=== PATIENT | female | born 1990 | race Caucasian/White ===

== ENCOUNTER 2017-03-19 11:43 | Inpatient (IN) | payer BC ==
[~2017-03-19] VITALS: Ht 165.1 cm; Wt 82.2 kg
[2017-03-19 12:41] LABS: BILIRUBIN,URINE NEGATIVE (NEG); GLUCOSE,URINE >=1000 mg/dL (NEG); NITRITE,URINE NEGATIVE (NEG); PROTEIN,URINE >=300 mg/dL (NEG-TRACE); UROBILINOGEN,URINE 0.2 mg/dL (0.2 mg/dL)
[2017-03-19 12:42] LABS: BASO # 0.1 x10^3/uL (0.0-0.2); BASO % 1 % (0-3); EOS % 1 % (0-3); HEMATOCRIT 45.5 % (36.0-47.0); HEMOGLOBIN 14.9 g/dL (12.0-15.5); LYMPH # 0.2 x10^3/uL (1.0-4.8); LYMPH % 2 % (24-48); MEAN CORPUSCULAR HEMOGLOBIN 28 pg (25-35); MEAN CORPUSCULAR HGB CONC 33 g/dL (31-37); MEAN CORPUSCULAR VOLUME 85 fL (79-100); MONO % 4 % (0-9); NEUT % 93 % (31-73); PLATELET COUNT 232 x10^3/uL (140-400); RED BLOOD COUNT 5.37 x10^6/uL (3.50-5.40); RED CELL DISTRIBUTION WIDTH 13.7 % (11.5-14.5); WHITE BLOOD COUNT 8.1 x10^3/uL (4.0-11.0)
[2017-03-19] MEDS ORDERED: IV NORMAL SALINE 1000ML BAG 1,000 ML IV ONE ×2 (12:45→13:30)
[2017-03-19] MEDS ORDERED: ONDANSETRON PF 4 MG/2 ML VIAL. IV ONE (12:45)
[2017-03-19 12:50] LABS: CALCIUM 8.6 mg/dL (8.5-10.1); CREATININE 0.9 mg/dL (0.6-1.0); GFR 76.9; POTASSIUM 4.6 mmol/L (3.5-5.1)
[2017-03-19 12:55] LABS: ALBUMIN 3.1 g/dL (3.4-5.0); DIRECT BILIRUBIN 0.1 mg/dL (0.0-0.2); TOTAL BILIRUBIN 0.6 mg/dL (0.2-1.0); TOTAL PROTEIN 7.2 g/dL (6.4-8.2)
[2017-03-19 13:00] LABS: BACTERIA,URINE MANY /HPF (0-FEW); WBC,URINE OCC /HPF (0-4)
--- NOTE | 2017-03-19 13:21 | PHYS DOC ---
Past Medical History Past Medical History: Anxiety, Diabetes-Type I, Other Additional Past Medical Histor: epilepsy, lumbar lordosis, insulin pump Past Surgical History: No Surgical History Alcohol Use: Occasionally Drug Use: None Adult General Chief Complaint Chief Complaint: BLOOD SUGAR PROBLEM HPI HPI 26-year-old female with history of type 1 diabetes currently using an insulin pump presenting to the emergency department with increasing blood sugar levels. She also has associated nausea and vomiting. She reports earlier this morning her blood sugars were in the 500s however over the past few hours she has been between 150 and 200. He denies any abdominal pain fevers or chills. She denies chest pain or shortness of breath. She reports that her insulin pump is working correctly. ROS is negative for chest pain shortness of breath or abdominal pain. Positive for nausea vomiting and elevated blood sugars. Negative for neck stiffness confusion cyanosis or nuchal rigidity. All other review of systems is negative unless otherwise noted in history of present illness. ED course: 26-year-old female presenting to the emergency department with increasing blood sugar levels. On arrival patient is afebrile with mild hypertension. She is tachycardic breathing comfortably on room air. On examination the patient is a soft nontender nondistended abdomen without any rebound tenderness or guarding. Negative McBurney's point. Negative Lin sign. Lungs are clear to auscultation. Normal neurologic exam. No evidence of nuchal rigidity. Negative Brudzinski sign. Negative Kernig sign. Otherwise unremarkable exam. Blood work obtained along with ABG. Patient is making ketones in the urine. Blood sugar elevated. Chemistry panel CO2 is at 23. ABG - Bicarbonate at 19 with ph at 7.41. Patient was given 10 units of IV insulin along with saline and then we obtained a bed for the patient hospital. I discussed case with Dr. Osborn who agrees with admission and plan thus far.I have assessed this patient clinically and believe that their condition requires an admission to the hospital. After consulting the admitting physician about this case, they have asked that I admit this patient to their service as an inpatient based on the clinical presentation and my impression. Review of Systems Review of Systems SEE ABOVE. Current Medications Current Medications Current Medications Medications (Trade) Dose Ordered Sig/Rosalinda Start Time Stop Time Status Last Admin Dose Admin Acetaminophen (Tylenol) 500 mg PRN Q6HRS PRN 03/19/17 15:15 Ceftriaxone Sodium 50 ml @ 100 mls/hr 1X ONCE 03/19/17 14:30 03/19/17 14:59 DC 03/19/17 15:07 100 MLS/HR Dextrose (Dextrose 50%-Water Syringe) 12.5 gm PRN Q15MIN PRN 03/19/17 14:45 Famotidine (Pepcid) 20 mg BID 03/19/17 21:00 Insulin Aspart (NovoLOG VIAL) 15 unit 1X ONCE 03/19/17 14:45 03/19/17 14:46 Cancel Insulin Aspart (NovoLOG) 10 units 1X ONCE 03/19/17 15:15 03/19/17 15:16 DC 03/19/17 15:19 10 UNITS Insulin Human Regular (NovoLIN R VIAL) 10 unit 1X ONCE 03/19/17 14:30 03/19/17 14:46 DC Metoclopramide HCl (Reglan) 5 mg TID 03/19/17 21:00 Morphine Sulfate 2 mg PRN Q2HR PRN 03/19/17 14:30 03/20/17 14:29 Ondansetron HCl (Zofran) 4 mg PRN Q6HRS PRN 03/19/17 14:45 03/20/17 14:44 Prochlorperazine Edisylate (Compazine) 10 mg PRN Q6HRS PRN 03/19/17 15:15 Sodium Chloride 1,000 ml @ 150 mls/hr Q6H40M 03/19/17 14:21 03/20/17 14:20 Allergies Allergies Allergies Coded Allergies Type Severity Reaction Last Updated Verified Sulfa (Sulfonamide Antibiotics) Allergy Intermediate childhood 03/19/17 Yes Physical Exam Physical Exam SEE ABOVE Constitutional: Well developed, well nourished, no acute distress, non-toxic appearance. [] HENT: Normocephalic, atraumatic, bilateral external ears normal, oropharynx moist, no oral exudates, nose normal. [] Eyes: PERRLA, EOMI, conjunctiva normal, no discharge. [] Neck: Normal range of motion, no tenderness, supple, no stridor. [] Cardiovascular:Heart rate regular rhythm, no murmur [] Lungs & Thorax: Bilateral breath sounds clear to auscultation [] Abdomen: Bowel sounds normal, soft, no tenderness, no masses, no pulsatile masses. [] Skin: Warm, dry, no erythema, no rash. [] Back: No tenderness, no CVA tenderness. [] Extremities: No tenderness, no cyanosis, no clubbing, ROM intact, no edema. [] Neurologic: Alert and oriented X 3, normal motor function, normal sensory function, no focal deficits noted. [] Psychologic: Affect normal, judgement normal, mood normal. [] Current Patient Data Vital Signs Vital Signs Date Time Temp Pulse Resp B/P (MAP) Pulse Ox O2 Delivery O2 Flow Rate FiO2 03/19/17 12:15 99.1 122 16 145/96 (112) 97 Room Air 99.1 Lab Values Laboratory Tests Test 03/19/17 12:15 03/19/17 12:18 03/19/17 12:24 03/19/17 12:44 Urine Collection Type Unknown Urine Color Yellow Urine Clarity Clear Urine pH 6.0 Urine Specific [place] >=1.030 Urine Protein >=300 mg/dL (NEG-TRACE) Urine Glucose (UA) >=1000 mg/dL (NEG) Urine Ketones (Stick) >=80 mg/dL (NEG) Urine Blood Moderate (NEG) Urine Nitrite Negative (NEG) Urine Bilirubin Negative (NEG) Urine Urobilinogen Dipstick 0.2 mg/dL (0.2 mg/dL) Urine Leukocyte Esterase Negative (NEG) Urine RBC 6-10 /HPF (0-2) Urine WBC Occ /HPF (0-4) Urine Bacteria Many /HPF (0-FEW) White Blood Count 8.1 x10^3/uL (4.0-11.0) Red Blood Count 5.37 x10^6/uL (3.50-5.40) Hemoglobin 14.9 g/dL (12.0-15.5) Hematocrit 45.5 % (36.0-47.0) Mean Corpuscular Volume 85 fL (79-100) Mean Corpuscular Hemoglobin 28 pg (25-35) Mean Corpuscular Hemoglobin Concent 33 g/dL (31-37) Red Cell Distribution Width 13.7 % (11.5-14.5) Platelet Count 232 x10^3/uL (140-400) Neutrophils (%) (Auto) 93 % (31-73) H Lymphocytes (%) (Auto) 2 % (24-48) L Monocytes (%) (Auto) 4 % (0-9) Eosinophils (%) (Auto) 1 % (0-3) Basophils (%) (Auto) 1 % (0-3) Neutrophils # (Auto) 7.5 x10^3uL (1.8-7.7) Lymphocytes # (Auto) 0.2 x10^3/uL (1.0-4.8) L Monocytes # (Auto) 0.3 x10^3/uL (0.0-1.1) Eosinophils # (Auto) 0.0 x10^3/uL (0.0-0.7) Basophils # (Auto) 0.1 x10^3/uL (0.0-0.2) Segmented Neutrophils % 91 % (35-66) H Band Neutrophils % 5 % (0-9) Lymphocytes % 2 % (24-48) L Monocytes % 2 % (0-10) Platelet Estimate Adequate (ADEQUATE) Sodium Level 139 mmol/L (136-145) Potassium Level 4.6 mmol/L (3.5-5.1) Chloride Level 101 mmol/L (98-107) Carbon Dioxide Level 23 mmol/L (21-32) Anion Gap 15 (6-14) H Blood Urea Nitrogen 21 mg/dL (7-20) H Creatinine 0.9 mg/dL (0.6-1.0) Estimated GFR (Cockcroft-Gault) 76.9 Glucose Level 381 mg/dL (70-99) H Lactic Acid Level 1.7 mmol/L (0.4-2.0) Calcium Level 8.6 mg/dL (8.5-10.1) Total Bilirubin 0.6 mg/dL (0.2-1.0) Direct Bilirubin 0.1 mg/dL (0.0-0.2) Aspartate Amino Transferase (AST) 28 U/L (15-37) Alanine Aminotransferase (ALT) 33 U/L (14-59) Alkaline Phosphatase 124 U/L (46-116) H Troponin I Quantitative < 0.017 ng/mL (0.000-0.055) Total Protein 7.2 g/dL (6.4-8.2) Albumin 3.1 g/dL (3.4-5.0) L Lipase 101 U/L (73-393) POC Urine HCG, Qualitative Hcg negative (Negative) Glucose (Fingerstick) 328 mg/dL (70-99) H Test 03/19/17 13:45 03/19/17 15:16 O2 Saturation Pending Arterial Blood pH 7.41 (7.35-7.45) Arterial Blood pCO2 at Patient Temp 30 mmHg (35-46) L Arterial Blood pO2 at Patient Temp 76 mmHg (85-108) L Arterial Blood HCO3 19 mmol/L (21-28) L Arterial Blood Base Excess -5 mmol/L (-3-3) L FiO2 21 Glucose (Fingerstick) 277 mg/dL (70-99) H Laboratory Tests 03/19/17 12:18 Laboratory Tests 03/19/17 12:18 EKG EKG [] Radiology/Procedures Radiology/Procedures [] Course & Med Decision Making Course & Med Decision Making Pertinent Labs and Imaging studies reviewed. (See chart for details) [] Dragon Disclaimer Dragon Disclaimer This electronic medical record was generated, in whole or in part, using a voice recognition dictation system. Departure Departure Impression: Primary Impression: Hyperglycemia Additional Impression: Ketosis Disposition: ADMITTED INPATIENT Admitting Physician: Hannah Osborn Condition: STABLE Referrals: VERNA DIALLO (PCP) Problem Qualifiers BRENDAN BRENNAN MD Mar 19, 2017 13:20
--- NOTE | 2017-03-19 13:44 | RAD ---
Portable chest, 03/19/2017: History: Diabetes, high blood pressure The heart size and pulmonary vascularity are normal. No pulmonary infiltrates are seen. There is no evidence of pleural fluid. IMPRESSION: No acute cardiopulmonary abnormality is detected.
[2017-03-19 13:57] LABS: HCO3 ABG 19 mmol/L (21-28); PCO2 ABG 30 mmHg (35-46); PH ABG 7.41 (7.35-7.45); PO2 ABG 76 mmHg (85-108)
[2017-03-19 14:00] LABS: FIO2 ABG 21
[2017-03-19 14:13] LABS: PLT ESTIMATE ADEQUATE (ADEQUATE)
[2017-03-19] MEDS ORDERED: ONDANSETRON PF 4 MG/2 ML VIAL. IV PRN ×2 (14:30→14:45)
[2017-03-19] MEDS ORDERED: INSULIN REGULAR 100 UNIT/ML 10ML VIAL. IV ONE (14:30)
[2017-03-19] MEDS ORDERED: MORPHINE SULFATE 2 MG/ML DISP.SYRIN. IV PRN (14:30)
[2017-03-19] MEDS ORDERED: DEXTROSE 50% 25 GM / 50ML DISP.SYRIN. IV PRN (14:45)
[2017-03-19] MEDS ORDERED: INSULIN ASPART 100 UNIT/ML 10ML VIAL. SQ ONE (14:45)
[2017-03-19] MEDS ORDERED: INSULIN ASPART 300 UNITS/3 ML INSULN.PEN SQ ONE (15:15)
[2017-03-19] MEDS ORDERED: PROCHLORPERAZINE 10 MG/2 ML VIAL. IV PRN (15:15)
--- NOTE | 2017-03-19 15:20 | PDOC1 ---
History and Physical Date of Admission Date of Admission DATE: 03/19/17 TIME: 15:15 Identification/Chief Complaint Chief Complaint Nausea vomiting unable to keep anything down Problems: Source Source: Caregiver, Chart review, Patient History of Present Illness History of Present Illness 26-year-old female who follows with an group fitness manager at for diabetes type 1. Unknown A1c it is always high. She has been a diabetic since 11 years old hence she knows how to manage her diabetes. She has been a diabetic for 15 years, has a current insulin pump. It is running there is no lack of any medications. Blood sugar was over 500 at home she claims. Here at the emergency room it's in the 320s range. Anion gap of 15, ketonuria and proteinuria and glucosuria on UA but no evidence of UTI. GOt a gram of Rocephin 1. Patient being admitted to control the blood sugar and also to control her nausea vomiting until she is able to take by mouth and be sent home. Agreeable to being admitted Past Medical History Endocrine: Diabetes Past Surgical History Past Surgical History: No pertinent history Family History Family History: Diabetes Social History Smoke: No ALCOHOL: none Drugs: None Current Problem List Problem List Problems Medical Problems: (1) Hyperglycemia Status: Acute Problems: Current Medications Current Medications Current Medications Sodium Chloride 1,000 ml @ 1,000 mls/hr 1X ONCE IV Last administered on 03/19t 12:55; Start 03/19/17 at 12:45; Stop 03/19/17 at 13:44; Status DC Ondansetron HCl (Zofran) 4 mg 1X ONCE IV Last administered on 03/19/17 12:55 ; Start 03/19/17 at 12:45; Stop 03/19/17 at 12:46; Status DC Sodium Chloride 1,000 ml @ 1,000 mls/hr 1X ONCE IV ; Start 03/19/17 at 13:30 ; Stop 03/19/17 at 14:29; Status DC Ondansetron HCl (Zofran) 4 mg PRN Q8HRS PRN IV NAUSEA/VOMITING; Start at 14:30; Stop 03/19/17 at 14:34; Status DC Morphine Sulfate 2 mg PRN Q2HR PRN IV PAIN; Start 03/19/17 at 14:30; Stop at 14:29 Sodium Chloride 1,000 ml @ 150 mls/hr Q6H40M IV ; Start 03/19/17 at 14:21; Stop 03/20/17 at 14:20 Insulin Human Regular (NovoLIN R VIAL) 10 unit 1X ONCE IV ; Start 03/19/17 at 14:30; Stop 03/19/17 at 14:46; Status DC Ceftriaxone Sodium 50 ml @ 100 mls/hr 1X ONCE IV Last administered on t 15:07; Start 03/19/17 at 14:30; Stop 03/19/17 at 14:59; Status DC Ondansetron HCl (Zofran) 4 mg PRN Q6HRS PRN IV NAUSEA/VOMITING; Start at 14:45; Stop 03/20/17 at 14:44 Insulin Aspart (NovoLOG) 0-9 UNITS TIDWMEALS SQ ; Start 03/19/17 at 17:00 Dextrose (Dextrose 50%-Water Syringe) 12.5 gm PRN Q15MIN PRN IV SEE COMMENTS; Start 03/19/17 at 14:45 Insulin Aspart (NovoLOG VIAL) 15 unit 1X ONCE SQ ; Start 03/19/17 at 14:45; Stop 03/19/17 at 14:46; Status Cancel Insulin Aspart (NovoLOG) 10 units 1X ONCE SQ ; Start 03/19/17 at 15:15; Stop 03/19/17 at 15:16 Allergies Allergies: Coded Allergies: Sulfa (Sulfonamide Antibiotics) (Verified Allergy, Intermediate, childhood , 03/19/17) ROS Review of System Nausea, vomiting no abdominal pain no diarrhea no UTI, the rest of the 14 point systems reviewed with her negative Physical Exam General: Alert, Oriented X3, Cooperative, No acute distress HEENT: Atraumatic, PERRLA, EOMI Lungs: Clear to auscultation, Normal air movement Heart: S1S2, RRR, no thrills, no rubs, no gallops, no murmurs Cardiovascular: S1, S2 Breasts: Normal, Rt breast nml w/o mass, Lt breast nml w/o mass, Nipples normal Abdomen: Normal bowel sounds, Soft, No tenderness, Other (insulin pump attached to her tummy) Rectal Exam: not examined PELVIC: Nml ext genitalia Extremities: No clubbing, No cyanosis, No edema, Normal pulses, No tenderness/ swelling Skin: No rashes, No breakdown, No significant lesion Neuro: Normal gait, Normal speech, Strength at 5/5 X4 ext, Normal tone, Sensation intact, Cranial nerves 3-12 NL, Reflexes 2+ Psych/Mental Status: Mental status NL, Mood NL Vitals Vitals Vital Signs Date Time Temp Pulse Resp B/P (MAP) Pulse Ox O2 Delivery O2 Flow Rate FiO2 03/19/17 12:15 99.1 122 16 145/96 (112) 97 Room Air 99.1 Labs Labs Laboratory Tests Test 03/19/17 12:15 03/19/17 12:18 03/19/17 12:24 03/19/17 12:44 Urine Collection Type Unknown Urine Color Yellow Urine Clarity Clear Urine pH 6.0 Urine Specific [place] >=1.030 Urine Protein >=300 mg/dL (NEG-TRACE) Urine Glucose (UA) >=1000 mg/dL (NEG) Urine Ketones (Stick) >=80 mg/dL (NEG) Urine Blood Moderate (NEG) Urine Nitrite Negative (NEG) Urine Bilirubin Negative (NEG) Urine Urobilinogen Dipstick 0.2 mg/dL (0.2 mg/dL) Urine Leukocyte Esterase Negative (NEG) Urine RBC 6-10 /HPF (0-2) Urine WBC Occ /HPF (0-4) Urine Bacteria Many /HPF (0-FEW) White Blood Count 8.1 x10^3/uL (4.0-11.0) Red Blood Count 5.37 x10^6/uL (3.50-5.40) Hemoglobin 14.9 g/dL (12.0-15.5) Hematocrit 45.5 % (36.0-47.0) Mean Corpuscular Volume 85 fL (79-100) Mean Corpuscular Hemoglobin 28 pg (25-35) Mean Corpuscular Hemoglobin Concent 33 g/dL (31-37) Red Cell Distribution Width 13.7 % (11.5-14.5) Platelet Count 232 x10^3/uL (140-400) Neutrophils (%) (Auto) 93 % (31-73) Lymphocytes (%) (Auto) 2 % (24-48) Monocytes (%) (Auto) 4 % (0-9) Eosinophils (%) (Auto) 1 % (0-3) Basophils (%) (Auto) 1 % (0-3) Neutrophils # (Auto) 7.5 x10^3uL (1.8-7.7) Lymphocytes # (Auto) 0.2 x10^3/uL (1.0-4.8) Monocytes # (Auto) 0.3 x10^3/uL (0.0-1.1) Eosinophils # (Auto) 0.0 x10^3/uL (0.0-0.7) Basophils # (Auto) 0.1 x10^3/uL (0.0-0.2) Segmented Neutrophils % 91 % (35-66) Band Neutrophils % 5 % (0-9) Lymphocytes % 2 % (24-48) Monocytes % 2 % (0-10) Platelet Estimate Adequate (ADEQUATE) Sodium Level 139 mmol/L (136-145) Potassium Level 4.6 mmol/L (3.5-5.1) Chloride Level 101 mmol/L (98-107) Carbon Dioxide Level 23 mmol/L (21-32) Anion Gap 15 (6-14) Blood Urea Nitrogen 21 mg/dL (7-20) Creatinine 0.9 mg/dL (0.6-1.0) Estimated GFR (Cockcroft-Gault) 76.9 Glucose Level 381 mg/dL (70-99) Lactic Acid Level 1.7 mmol/L (0.4-2.0) Calcium Level 8.6 mg/dL (8.5-10.1) Total Bilirubin 0.6 mg/dL (0.2-1.0) Direct Bilirubin 0.1 mg/dL (0.0-0.2) Aspartate Amino Transf (AST/SGOT) 28 U/L (15-37) Alanine Aminotransferase (ALT/SGPT) 33 U/L (14-59) Alkaline Phosphatase 124 U/L (46-116) Troponin I Quantitative < 0.017 ng/mL (0.000-0.055) Total Protein 7.2 g/dL (6.4-8.2) Albumin 3.1 g/dL (3.4-5.0) Lipase 101 U/L (73-393) Bedside Urine HCG, Qualitative Hcg negative (Negative) Glucose (Fingerstick) 328 mg/dL (70-99) Test 03/19/17 13:45 Arterial Blood pH 7.41 (7.35-7.45) Arterial Blood pCO2 at Patient Temp 30 mmHg (35-46) Arterial Blood pO2 at Patient Temp 76 mmHg (85-108) Arterial Blood HCO3 19 mmol/L (21-28) Arterial Blood Base Excess -5 mmol/L (-3-3) FiO2 21 Laboratory Tests Test 03/19/17 12:15 03/19/17 12:18 03/19/17 12:24 03/19/17 12:44 Urine Collection Type Unknown Urine Color Yellow Urine Clarity Clear Urine pH 6.0 Urine Specific [place] >=1.030 Urine Protein >=300 mg/dL (NEG-TRACE) Urine Glucose (UA) >=1000 mg/dL (NEG) Urine Ketones (Stick) >=80 mg/dL (NEG) Urine Blood Moderate (NEG) Urine Nitrite Negative (NEG) Urine Bilirubin Negative (NEG) Urine Urobilinogen Dipstick 0.2 mg/dL (0.2 mg/dL) Urine Leukocyte Esterase Negative (NEG) Urine RBC 6-10 /HPF (0-2) Urine WBC Occ /HPF (0-4) Urine Bacteria Many /HPF (0-FEW) White Blood Count 8.1 x10^3/uL (4.0-11.0) Red Blood Count 5.37 x10^6/uL (3.50-5.40) Hemoglobin 14.9 g/dL (12.0-15.5) Hematocrit 45.5 % (36.0-47.0) Mean Corpuscular Volume 85 fL (79-100) Mean Corpuscular Hemoglobin 28 pg (25-35) Mean Corpuscular Hemoglobin Concent 33 g/dL (31-37) Red Cell Distribution Width 13.7 % (11.5-14.5) Platelet Count 232 x10^3/uL (140-400) Neutrophils (%) (Auto) 93 % (31-73) Lymphocytes (%) (Auto) 2 % (24-48) Monocytes (%) (Auto) 4 % (0-9) Eosinophils (%) (Auto) 1 % (0-3) Basophils (%) (Auto) 1 % (0-3) Neutrophils # (Auto) 7.5 x10^3uL (1.8-7.7) Lymphocytes # (Auto) 0.2 x10^3/uL (1.0-4.8) Monocytes # (Auto) 0.3 x10^3/uL (0.0-1.1) Eosinophils # (Auto) 0.0 x10^3/uL (0.0-0.7) Basophils # (Auto) 0.1 x10^3/uL (0.0-0.2) Segmented Neutrophils % 91 % (35-66) Band Neutrophils % 5 % (0-9) Lymphocytes % 2 % (24-48) Monocytes % 2 % (0-10) Platelet Estimate Adequate (ADEQUATE) Sodium Level 139 mmol/L (136-145) Potassium Level 4.6 mmol/L (3.5-5.1) Chloride Level 101 mmol/L (98-107) Carbon Dioxide Level 23 mmol/L (21-32) Anion Gap 15 (6-14) Blood Urea Nitrogen 21 mg/dL (7-20) Creatinine 0.9 mg/dL (0.6-1.0) Estimated GFR (Cockcroft-Gault) 76.9 Glucose Level 381 mg/dL (70-99) Lactic Acid Level 1.7 mmol/L (0.4-2.0) Calcium Level 8.6 mg/dL (8.5-10.1) Total Bilirubin 0.6 mg/dL (0.2-1.0) Direct Bilirubin 0.1 mg/dL (0.0-0.2) Aspartate Amino Transf (AST/SGOT) 28 U/L (15-37) Alanine Aminotransferase (ALT/SGPT) 33 U/L (14-59) Alkaline Phosphatase 124 U/L (46-116) Troponin I Quantitative < 0.017 ng/mL (0.000-0.055) Total Protein 7.2 g/dL (6.4-8.2) Albumin 3.1 g/dL (3.4-5.0) Lipase 101 U/L (73-393) Bedside Urine HCG, Qualitative Hcg negative (Negative) Glucose (Fingerstick) 328 mg/dL (70-99) Test 03/19/17 13:45 Arterial Blood pH 7.41 (7.35-7.45) Arterial Blood pCO2 at Patient Temp 30 mmHg (35-46) Arterial Blood pO2 at Patient Temp 76 mmHg (85-108) Arterial Blood HCO3 19 mmol/L (21-28) Arterial Blood Base Excess -5 mmol/L (-3-3) FiO2 21 VTE Prophylaxis Ordered VTE Prophylaxis Devices: Yes VTE Pharmacological Prophylaxi: Yes Assessment/Plan Assessment/Plan Assessment: Diabetes type 1, uncontrolled - with indwelling insulin pump, unknown hemoglobin A1c Anion gap elevated No evidence of UTI non Nausea emesis, could be viral? MIld hypoalbuminemia with albumin 3.1 Plan: Admit, aggressive IVF 150 mL an hour I don't think she needs the insulin drip right now, her blood sugars is 328, NovoLog 101 - discussed with PATIENT SERVICE TECHNICIAN PST Sliding scale insulin high-dose but she can do the pump by herself actually too We do not have an group fitness manager here I will try to control her nausea vomiting with meds Once she is able to take something oral then we can discharge home, hopefully tomorrow Agreeable to start a liquid diet Jorge Discussed with her and the family at bedside, seen at the emergency room TIMO YEBOAH MD Mar 19, 2017 15:20
[2017-03-19] MEDS: ACETAMINOPHEN 500 MG TABLET PO PRN (17:02)
[2017-03-19] MEDS: IV NORMAL SALINE 1000ML BAG 1,000 ML IV SCH ×2 (17:03→23:28)
[2017-03-19] MEDS: INSULIN ASPART 300 UNITS/3 ML INSULN.PEN SQ SCH (17:13)
[2017-03-19] MEDS ORDERED: ZONI100C PO (18:42)
[2017-03-19 19:00] VITALS: BP 129/77
[2017-03-19] MEDS: FAMOTIDINE 20 MG TABLET. PO SCH (20:58)
[2017-03-19] MEDS: METOCLOPRAMIDE 5 MG TABLET. PO SCH (20:58)
[2017-03-19] MEDS ORDERED: ZONISAMIDE 100 MG CAPSULE. PO SCH (21:00)
[2017-03-19 23:00] VITALS: BP 109/55
[2017-03-20 03:00] VITALS: BP 118/77
[2017-03-20] MEDS: IV NORMAL SALINE 1000ML BAG 1,000 ML IV SCH (03:45)
[2017-03-20 06:29] LABS: BASO % 0 % (0-3); EOS % 1 % (0-3); HEMATOCRIT 39.2 % (36.0-47.0); LYMPH # 0.6 x10^3/uL (1.0-4.8); LYMPH % 10 % (24-48); MEAN CORPUSCULAR HEMOGLOBIN 28 pg (25-35); MEAN CORPUSCULAR HGB CONC 33 g/dL (31-37); MEAN CORPUSCULAR VOLUME 84 fL (79-100); MONO % 7 % (0-9); NEUT % 83 % (31-73); PLATELET COUNT 190 x10^3/uL (140-400); RED BLOOD COUNT 4.67 x10^6/uL (3.50-5.40); RED CELL DISTRIBUTION WIDTH 13.9 % (11.5-14.5); WHITE BLOOD COUNT 6.6 x10^3/uL (4.0-11.0)
[2017-03-20 06:40] LABS: CALCIUM 7.4 mg/dL (8.5-10.1); CREATININE 0.7 mg/dL (0.6-1.0); GFR 102.8; POTASSIUM 3.4 mmol/L (3.5-5.1)
[2017-03-20 07:00] VITALS: BP 119/76
[2017-03-20] MEDS: METOCLOPRAMIDE 5 MG TABLET. PO SCH (08:32)
[2017-03-20] MEDS: FAMOTIDINE 20 MG TABLET. PO SCH (08:32)
[2017-03-20] MEDS: ACETAMINOPHEN 500 MG TABLET PO PRN (08:34)
[2017-03-20] MEDS: INSULIN ASPART 300 UNITS/3 ML INSULN.PEN SQ SCH ×2 (08:41→11:59)
--- NOTE | 2017-03-20 09:36 | PDOC ---
PROGRESS NOTES Chief Complaint Chief Complaint Hyperglycemia Ketonuria, glycosuria Nausea DM History of Present Illness History of Present Illness Patient was admitted yesterday for blood glucose control after home report of BG >500, and in the ER320 w/an AG of 15. Today her BG has improved to 161, and her AG closed at 10. She has been receiving IVF, nausea control, and BG control. She denies emesis since admittance and reports feeling like she could go home. Vitals Vitals Vital Signs Date Time Temp Pulse Resp B/P (MAP) Pulse Ox O2 Delivery O2 Flow Rate FiO2 03/20/17 07:00 98.5 106 20 119/76 (90) 95 Room Air 98.5 Physical Exam General: Alert, Oriented X3, Cooperative, No acute distress Heart: Regular rate Lungs: Clear Abdomen: Normal bowel sounds, Soft, No tenderness, Other (insulin pump attached to her tummy) Extremities: No clubbing, No cyanosis, No edema, Normal pulses, No tenderness/ swelling Skin: No rashes, No breakdown, No significant lesion Labs LABS Laboratory Tests Test 03/19/17 12:15 03/19/17 12:18 03/19/17 12:24 03/19/17 12:44 Urine Collection Type Unknown Urine Color Yellow Urine Clarity Clear Urine pH 6.0 Urine Specific Malone >=1.030 Urine Protein >=300 mg/dL (NEG-TRACE) Urine Glucose (UA) >=1000 mg/dL (NEG) Urine Ketones (Stick) >=80 mg/dL (NEG) Urine Blood Moderate (NEG) Urine Nitrite Negative (NEG) Urine Bilirubin Negative (NEG) Urine Urobilinogen Dipstick 0.2 mg/dL (0.2 mg/dL) Urine Leukocyte Esterase Negative (NEG) Urine RBC 6-10 /HPF (0-2) Urine WBC Occ /HPF (0-4) Urine Bacteria Many /HPF (0-FEW) White Blood Count 8.1 x10^3/uL (4.0-11.0) Red Blood Count 5.37 x10^6/uL (3.50-5.40) Hemoglobin 14.9 g/dL (12.0-15.5) Hematocrit 45.5 % (36.0-47.0) Mean Corpuscular Volume 85 fL (79-100) Mean Corpuscular Hemoglobin 28 pg (25-35) Mean Corpuscular Hemoglobin Concent 33 g/dL (31-37) Red Cell Distribution Width 13.7 % (11.5-14.5) Platelet Count 232 x10^3/uL (140-400) Neutrophils (%) (Auto) 93 % (31-73) Lymphocytes (%) (Auto) 2 % (24-48) Monocytes (%) (Auto) 4 % (0-9) Eosinophils (%) (Auto) 1 % (0-3) Basophils (%) (Auto) 1 % (0-3) Neutrophils # (Auto) 7.5 x10^3uL (1.8-7.7) Lymphocytes # (Auto) 0.2 x10^3/uL (1.0-4.8) Monocytes # (Auto) 0.3 x10^3/uL (0.0-1.1) Eosinophils # (Auto) 0.0 x10^3/uL (0.0-0.7) Basophils # (Auto) 0.1 x10^3/uL (0.0-0.2) Segmented Neutrophils % 91 % (35-66) Band Neutrophils % 5 % (0-9) Lymphocytes % 2 % (24-48) Monocytes % 2 % (0-10) Platelet Estimate Adequate (ADEQUATE) Sodium Level 139 mmol/L (136-145) Potassium Level 4.6 mmol/L (3.5-5.1) Chloride Level 101 mmol/L (98-107) Carbon Dioxide Level 23 mmol/L (21-32) Anion Gap 15 (6-14) Blood Urea Nitrogen 21 mg/dL (7-20) Creatinine 0.9 mg/dL (0.6-1.0) Estimated GFR (Cockcroft-Gault) 76.9 Glucose Level 381 mg/dL (70-99) Hemoglobin A1c 12.1 % (4.8-5.6) Lactic Acid Level 1.7 mmol/L (0.4-2.0) Calcium Level 8.6 mg/dL (8.5-10.1) Total Bilirubin 0.6 mg/dL (0.2-1.0) Direct Bilirubin 0.1 mg/dL (0.0-0.2) Aspartate Amino Transf (AST/SGOT) 28 U/L (15-37) Alanine Aminotransferase (ALT/SGPT) 33 U/L (14-59) Alkaline Phosphatase 124 U/L (46-116) Troponin I Quantitative < 0.017 ng/mL (0.000-0.055) Total Protein 7.2 g/dL (6.4-8.2) Albumin 3.1 g/dL (3.4-5.0) Lipase 101 U/L (73-393) Bedside Urine HCG, Qualitative Hcg negative (Negative) Glucose (Fingerstick) 328 mg/dL (70-99) Test 03/19/17 13:45 03/19/17 15:16 03/19/17 16:05 03/19/17 16:54 O2 Saturation % (92-99) Arterial Blood pH 7.41 (7.35-7.45) Arterial Blood pCO2 at Patient Temp 30 mmHg (35-46) Arterial Blood pO2 at Patient Temp 76 mmHg (85-108) Arterial Blood HCO3 19 mmol/L (21-28) Arterial Blood Base Excess -5 mmol/L (-3-3) FiO2 21 Glucose (Fingerstick) 277 mg/dL (70-99) 276 mg/dL (70-99) 247 mg/dL (70-99) Test 03/19/17 20:28 03/20/17 06:00 03/20/17 07:47 Glucose (Fingerstick) 183 mg/dL (70-99) 158 mg/dL (70-99) White Blood Count 6.6 x10^3/uL (4.0-11.0) Red Blood Count 4.67 x10^6/uL (3.50-5.40) Hemoglobin 13.0 g/dL (12.0-15.5) Hematocrit 39.2 % (36.0-47.0) Mean Corpuscular Volume 84 fL (79-100) Mean Corpuscular Hemoglobin 28 pg (25-35) Mean Corpuscular Hemoglobin Concent 33 g/dL (31-37) Red Cell Distribution Width 13.9 % (11.5-14.5) Platelet Count 190 x10^3/uL (140-400) Neutrophils (%) (Auto) 83 % (31-73) Lymphocytes (%) (Auto) 10 % (24-48) Monocytes (%) (Auto) 7 % (0-9) Eosinophils (%) (Auto) 1 % (0-3) Basophils (%) (Auto) 0 % (0-3) Neutrophils # (Auto) 5.5 x10^3uL (1.8-7.7) Lymphocytes # (Auto) 0.6 x10^3/uL (1.0-4.8) Monocytes # (Auto) 0.4 x10^3/uL (0.0-1.1) Eosinophils # (Auto) 0.0 x10^3/uL (0.0-0.7) Basophils # (Auto) 0.0 x10^3/uL (0.0-0.2) Sodium Level 138 mmol/L (136-145) Potassium Level 3.4 mmol/L (3.5-5.1) Chloride Level 107 mmol/L (98-107) Carbon Dioxide Level 21 mmol/L (21-32) Anion Gap 10 (6-14) Blood Urea Nitrogen 14 mg/dL (7-20) Creatinine 0.7 mg/dL (0.6-1.0) Estimated GFR (Cockcroft-Gault) 102.8 Glucose Level 161 mg/dL (70-99) Calcium Level 7.4 mg/dL (8.5-10.1) Review of Systems Review of Systems Patient denies vomiting Patient denies nausea Assessment and Plan Assessmemt and Plan Problems Medical Problems: (1) Hyperglycemia Status: Acute (2) Ketosis Status: Acute Assessment: Hyperglycemia Ketonuria, glycosuria Nausea DM Plan: Blood glucose control PRN nausea medication IVF Recheck labs Monitor AG Home meds Discharge home Problems: Comment Review of Relevant I have reviewed the following items jasvir (where applicable) has been applied. Labs Laboratory Tests Test 03/19/17 12:15 03/19/17 12:18 03/19/17 12:24 03/19/17 12:44 Urine Collection Type Unknown Urine Color Yellow Urine Clarity Clear Urine pH 6.0 Urine Specific Malone >=1.030 Urine Protein >=300 mg/dL (NEG-TRACE) Urine Glucose (UA) >=1000 mg/dL (NEG) Urine Ketones (Stick) >=80 mg/dL (NEG) Urine Blood Moderate (NEG) Urine Nitrite Negative (NEG) Urine Bilirubin Negative (NEG) Urine Urobilinogen Dipstick 0.2 mg/dL (0.2 mg/dL) Urine Leukocyte Esterase Negative (NEG) Urine RBC 6-10 /HPF (0-2) Urine WBC Occ /HPF (0-4) Urine Bacteria Many /HPF (0-FEW) White Blood Count 8.1 x10^3/uL (4.0-11.0) Red Blood Count 5.37 x10^6/uL (3.50-5.40) Hemoglobin 14.9 g/dL (12.0-15.5) Hematocrit 45.5 % (36.0-47.0) Mean Corpuscular Volume 85 fL (79-100) Mean Corpuscular Hemoglobin 28 pg (25-35) Mean Corpuscular Hemoglobin Concent 33 g/dL (31-37) Red Cell Distribution Width 13.7 % (11.5-14.5) Platelet Count 232 x10^3/uL (140-400) Neutrophils (%) (Auto) 93 % (31-73) Lymphocytes (%) (Auto) 2 % (24-48) Monocytes (%) (Auto) 4 % (0-9) Eosinophils (%) (Auto) 1 % (0-3) Basophils (%) (Auto) 1 % (0-3) Neutrophils # (Auto) 7.5 x10^3uL (1.8-7.7) Lymphocytes # (Auto) 0.2 x10^3/uL (1.0-4.8) Monocytes # (Auto) 0.3 x10^3/uL (0.0-1.1) Eosinophils # (Auto) 0.0 x10^3/uL (0.0-0.7) Basophils # (Auto) 0.1 x10^3/uL (0.0-0.2) Segmented Neutrophils % 91 % (35-66) Band Neutrophils % 5 % (0-9) Lymphocytes % 2 % (24-48) Monocytes % 2 % (0-10) Platelet Estimate Adequate (ADEQUATE) Sodium Level 139 mmol/L (136-145) Potassium Level 4.6 mmol/L (3.5-5.1) Chloride Level 101 mmol/L (98-107) Carbon Dioxide Level 23 mmol/L (21-32) Anion Gap 15 (6-14) Blood Urea Nitrogen 21 mg/dL (7-20) Creatinine 0.9 mg/dL (0.6-1.0) Estimated GFR (Cockcroft-Gault) 76.9 Glucose Level 381 mg/dL (70-99) Hemoglobin A1c 12.1 % (4.8-5.6) Lactic Acid Level 1.7 mmol/L (0.4-2.0) Calcium Level 8.6 mg/dL (8.5-10.1) Total Bilirubin 0.6 mg/dL (0.2-1.0) Direct Bilirubin 0.1 mg/dL (0.0-0.2) Aspartate Amino Transf (AST/SGOT) 28 U/L (15-37) Alanine Aminotransferase (ALT/SGPT) 33 U/L (14-59) Alkaline Phosphatase 124 U/L (46-116) Troponin I Quantitative < 0.017 ng/mL (0.000-0.055) Total Protein 7.2 g/dL (6.4-8.2) Albumin 3.1 g/dL (3.4-5.0) Lipase 101 U/L (73-393) Bedside Urine HCG, Qualitative Hcg negative (Negative) Glucose (Fingerstick) 328 mg/dL (70-99) Test 03/19/17 13:45 03/19/17 15:16 03/19/17 16:05 03/19/17 16:54 O2 Saturation % (92-99) Arterial Blood pH 7.41 (7.35-7.45) Arterial Blood pCO2 at Patient Temp 30 mmHg (35-46) Arterial Blood pO2 at Patient Temp 76 mmHg (85-108) Arterial Blood HCO3 19 mmol/L (21-28) Arterial Blood Base Excess -5 mmol/L (-3-3) FiO2 21 Glucose (Fingerstick) 277 mg/dL (70-99) 276 mg/dL (70-99) 247 mg/dL (70-99) Test 03/19/17 20:28 03/20/17 06:00 03/20/17 07:47 Glucose (Fingerstick) 183 mg/dL (70-99) 158 mg/dL (70-99) White Blood Count 6.6 x10^3/uL (4.0-11.0) Red Blood Count 4.67 x10^6/uL (3.50-5.40) Hemoglobin 13.0 g/dL (12.0-15.5) Hematocrit 39.2 % (36.0-47.0) Mean Corpuscular Volume 84 fL (79-100) Mean Corpuscular Hemoglobin 28 pg (25-35) Mean Corpuscular Hemoglobin Concent 33 g/dL (31-37) Red Cell Distribution Width 13.9 % (11.5-14.5) Platelet Count 190 x10^3/uL (140-400) Neutrophils (%) (Auto) 83 % (31-73) Lymphocytes (%) (Auto) 10 % (24-48) Monocytes (%) (Auto) 7 % (0-9) Eosinophils (%) (Auto) 1 % (0-3) Basophils (%) (Auto) 0 % (0-3) Neutrophils # (Auto) 5.5 x10^3uL (1.8-7.7) Lymphocytes # (Auto) 0.6 x10^3/uL (1.0-4.8) Monocytes # (Auto) 0.4 x10^3/uL (0.0-1.1) Eosinophils # (Auto) 0.0 x10^3/uL (0.0-0.7) Basophils # (Auto) 0.0 x10^3/uL (0.0-0.2) Sodium Level 138 mmol/L (136-145) Potassium Level 3.4 mmol/L (3.5-5.1) Chloride Level 107 mmol/L (98-107) Carbon Dioxide Level 21 mmol/L (21-32) Anion Gap 10 (6-14) Blood Urea Nitrogen 14 mg/dL (7-20) Creatinine 0.7 mg/dL (0.6-1.0) Estimated GFR (Cockcroft-Gault) 102.8 Glucose Level 161 mg/dL (70-99) Calcium Level 7.4 mg/dL (8.5-10.1) Laboratory Tests Test 03/19/17 12:15 03/19/17 12:18 03/19/17 12:24 03/19/17 12:44 Urine Collection Type Unknown Urine Color Yellow Urine Clarity Clear Urine pH 6.0 Urine Specific Malone >=1.030 Urine Protein >=300 mg/dL (NEG-TRACE) Urine Glucose (UA) >=1000 mg/dL (NEG) Urine Ketones (Stick) >=80 mg/dL (NEG) Urine Blood Moderate (NEG) Urine Nitrite Negative (NEG) Urine Bilirubin Negative (NEG) Urine Urobilinogen Dipstick 0.2 mg/dL (0.2 mg/dL) Urine Leukocyte Esterase Negative (NEG) Urine RBC 6-10 /HPF (0-2) Urine WBC Occ /HPF (0-4) Urine Bacteria Many /HPF (0-FEW) White Blood Count 8.1 x10^3/uL (4.0-11.0) Red Blood Count 5.37 x10^6/uL (3.50-5.40) Hemoglobin 14.9 g/dL (12.0-15.5) Hematocrit 45.5 % (36.0-47.0) Mean Corpuscular Volume 85 fL (79-100) Mean Corpuscular Hemoglobin 28 pg (25-35) Mean Corpuscular Hemoglobin Concent 33 g/dL (31-37) Red Cell Distribution Width 13.7 % (11.5-14.5) Platelet Count 232 x10^3/uL (140-400) Neutrophils (%) (Auto) 93 % (31-73) Lymphocytes (%) (Auto) 2 % (24-48) Monocytes (%) (Auto) 4 % (0-9) Eosinophils (%) (Auto) 1 % (0-3) Basophils (%) (Auto) 1 % (0-3) Neutrophils # (Auto) 7.5 x10^3uL (1.8-7.7) Lymphocytes # (Auto) 0.2 x10^3/uL (1.0-4.8) Monocytes # (Auto) 0.3 x10^3/uL (0.0-1.1) Eosinophils # (Auto) 0.0 x10^3/uL (0.0-0.7) Basophils # (Auto) 0.1 x10^3/uL (0.0-0.2) Segmented Neutrophils % 91 % (35-66) Band Neutrophils % 5 % (0-9) Lymphocytes % 2 % (24-48) Monocytes % 2 % (0-10) Platelet Estimate Adequate (ADEQUATE) Sodium Level 139 mmol/L (136-145) Potassium Level 4.6 mmol/L (3.5-5.1) Chloride Level 101 mmol/L (98-107) Carbon Dioxide Level 23 mmol/L (21-32) Anion Gap 15 (6-14) Blood Urea Nitrogen 21 mg/dL (7-20) Creatinine 0.9 mg/dL (0.6-1.0) Estimated GFR (Cockcroft-Gault) 76.9 Glucose Level 381 mg/dL (70-99) Hemoglobin A1c 12.1 % (4.8-5.6) Lactic Acid Level 1.7 mmol/L (0.4-2.0) Calcium Level 8.6 mg/dL (8.5-10.1) Total Bilirubin 0.6 mg/dL (0.2-1.0) Direct Bilirubin 0.1 mg/dL (0.0-0.2) Aspartate Amino Transf (AST/SGOT) 28 U/L (15-37) Alanine Aminotransferase (ALT/SGPT) 33 U/L (14-59) Alkaline Phosphatase 124 U/L (46-116) Troponin I Quantitative < 0.017 ng/mL (0.000-0.055) Total Protein 7.2 g/dL (6.4-8.2) Albumin 3.1 g/dL (3.4-5.0) Lipase 101 U/L (73-393) Bedside Urine HCG, Qualitative Hcg negative (Negative) Glucose (Fingerstick) 328 mg/dL (70-99) Test 03/19/17 13:45 03/19/17 15:16 03/19/17 16:05 03/19/17 16:54 O2 Saturation % (92-99) Arterial Blood pH 7.41 (7.35-7.45) Arterial Blood pCO2 at Patient Temp 30 mmHg (35-46) Arterial Blood pO2 at Patient Temp 76 mmHg (85-108) Arterial Blood HCO3 19 mmol/L (21-28) Arterial Blood Base Excess -5 mmol/L (-3-3) FiO2 21 Glucose (Fingerstick) 277 mg/dL (70-99) 276 mg/dL (70-99) 247 mg/dL (70-99) Test 03/19/17 20:28 03/20/17 06:00 03/20/17 07:47 Glucose (Fingerstick) 183 mg/dL (70-99) 158 mg/dL (70-99) White Blood Count 6.6 x10^3/uL (4.0-11.0) Red Blood Count 4.67 x10^6/uL (3.50-5.40) Hemoglobin 13.0 g/dL (12.0-15.5) Hematocrit 39.2 % (36.0-47.0) Mean Corpuscular Volume 84 fL (79-100) Mean Corpuscular Hemoglobin 28 pg (25-35) Mean Corpuscular Hemoglobin Concent 33 g/dL (31-37) Red Cell Distribution Width 13.9 % (11.5-14.5) Platelet Count 190 x10^3/uL (140-400) Neutrophils (%) (Auto) 83 % (31-73) Lymphocytes (%) (Auto) 10 % (24-48) Monocytes (%) (Auto) 7 % (0-9) Eosinophils (%) (Auto) 1 % (0-3) Basophils (%) (Auto) 0 % (0-3) Neutrophils # (Auto) 5.5 x10^3uL (1.8-7.7) Lymphocytes # (Auto) 0.6 x10^3/uL (1.0-4.8) Monocytes # (Auto) 0.4 x10^3/uL (0.0-1.1) Eosinophils # (Auto) 0.0 x10^3/uL (0.0-0.7) Basophils # (Auto) 0.0 x10^3/uL (0.0-0.2) Sodium Level 138 mmol/L (136-145) Potassium Level 3.4 mmol/L (3.5-5.1) Chloride Level 107 mmol/L (98-107) Carbon Dioxide Level 21 mmol/L (21-32) Anion Gap 10 (6-14) Blood Urea Nitrogen 14 mg/dL (7-20) Creatinine 0.7 mg/dL (0.6-1.0) Estimated GFR (Cockcroft-Gault) 102.8 Glucose Level 161 mg/dL (70-99) Calcium Level 7.4 mg/dL (8.5-10.1) Medications Current Medications Sodium Chloride 1,000 ml @ 1,000 mls/hr 1X ONCE IV Last administered on 03/19t 12:55; Start 03/19/17 at 12:45; Stop 03/19/17 at 13:44; Status DC Ondansetron HCl (Zofran) 4 mg 1X ONCE IV Last administered on 03/19/17 12:55 ; Start 03/19/17 at 12:45; Stop 03/19/17 at 12:46; Status DC Sodium Chloride 1,000 ml @ 1,000 mls/hr 1X ONCE IV Last administered on 03/19 15:55; Start 03/19/17 at 13:30; Stop 03/19/17 at 14:29; Status DC Ondansetron HCl (Zofran) 4 mg PRN Q8HRS PRN IV NAUSEA/VOMITING; Start at 14:30; Stop 03/19/17 at 14:34; Status DC Morphine Sulfate 2 mg PRN Q2HR PRN IV PAIN; Start 03/19/17 at 14:30; Stop at 14:29 Sodium Chloride 1,000 ml @ 150 mls/hr Q6H40M IV Last administered on 23:28; Start 03/19/17 at 14:21; Stop 03/20/17 at 14:20 Insulin Human Regular (NovoLIN R VIAL) 10 unit 1X ONCE IV ; Start 03/19/17 at 14:30; Stop 03/19/17 at 14:46; Status DC Ceftriaxone Sodium 50 ml @ 100 mls/hr 1X ONCE IV Last administered on 15:07; Start 03/19/17 at 14:30; Stop 03/19/17 at 14:59; Status DC Ondansetron HCl (Zofran) 4 mg PRN Q6HRS PRN IV NAUSEA/VOMITING; Start at 14:45; Stop 03/20/17 at 14:44 Insulin Aspart (NovoLOG) 0-9 UNITS TIDWMEALS SQ Last administered on 08:41; Start 03/19/17 at 17:00 Dextrose (Dextrose 50%-Water Syringe) 12.5 gm PRN Q15MIN PRN IV SEE COMMENTS; Start 03/19/17 at 14:45 Insulin Aspart (NovoLOG VIAL) 15 unit 1X ONCE SQ ; Start 03/19/17 at 14:45; Stop 03/19/17 at 14:46; Status Cancel Insulin Aspart (NovoLOG) 10 units 1X ONCE SQ Last administered on 03/19/17 15:19; Start 03/19/17 at 15:15; Stop 03/19/17 at 15:16; Status DC Metoclopramide HCl (Reglan) 5 mg TID PO Last administered on 03/20/17 08:32; Start 03/19/17 at 21:00 Prochlorperazine Edisylate (Compazine) 10 mg PRN Q6HRS PRN IV NAUSEA/VOMITING Last administered on 03/19/17 17:03; Start 03/19/17 at 15:15 Famotidine (Pepcid) 20 mg BID PO Last administered on 03/20/17 08:32; Start 03/19/17 at 21:00 Acetaminophen (Tylenol) 500 mg PRN Q6HRS PRN PO MILD PAIN / TEMP Last administered on 03/20/17 08:34; Start 03/19/17 at 15:15 Zonisamide (Zonegran) 500 mg HS PO Last administered on 03/19/17 20:58; Start 03/19/17 at 21:00 Active Scripts Active Reported Zonisamide 100 Mg Capsule 500 Mg PO DAILY Vitals/I & O Vital Sign - Last 24 Hours 03/19/17 03/19/17 03/19/17 03/19/17 12:15 12:15 14:39 15:09 Temp 99.1 99.1 99.1 99.1 Pulse 122 122 113 118 Resp 16 16 16 16 B/P (MAP) 145/96 (112) 132/80 (97) 130/64 (86) Pulse Ox 97 97 98 97 O2 Delivery Room Air Room Air Room Air Room Air 03/19/17 03/19/17 03/19/17 03/19/17 18:21 19:00 20:00 23:00 Temp 98.6 98.4 98.6 98.4 Pulse 93 110 Resp 17 16 B/P (MAP) 129/77 (94) 109/55 (73) Pulse Ox 97 99 O2 Delivery Room Air Room Air Room Air Room Air 03/20/17 03/20/17 03:00 07:00 Temp 98.4 98.5 98.4 98.5 Pulse 111 106 Resp 16 20 B/P (MAP) 118/77 (91) 119/76 (90) Pulse Ox 95 95 O2 Delivery Room Air Room Air Intake and Output 03/19/17 03/19/17 03/20/17 15:00 23:00 07:00 Intake Total 1550 ml 1000 ml Output Total 0 ml Balance 1550 ml 1000 ml ROSENDA CHISHOLM III DO Mar 20, 2017 09:36
[2017-03-20 10:56] VITALS: BP 118/85
--- NOTE | 2017-03-20 15:29 | DS ---
DATE OF DISCHARGE: 03/20/2017 ADMISSION DIAGNOSIS: Diabetic ketoacidosis. DISCHARGE DIAGNOSES: Resolving diabetic ketoacidosis. History of seizures. HOSPITAL COURSE: The patient is a pleasant 26-year-old female who has had diabetes since she was 11. She has an insulin pump. She presented with anion gap metabolic acidosis to 15 with hyperglycemia. She was admitted. We gave her insulin and fluids. Today, she is doing better. We plan to discharge with close outpatient followup. DISPOSITION: Home. ACTIVITY: As tolerated. DIET: Low sodium. MEDICATIONS: Please see MRAD. TOTAL TIME: 32 minutes. MEGHANAL Silvia CHISHOLM DO DR: MARLENA/shayy JOB#: [id number] / [id number]
== END 2017-03-20 13:15 | disposition home or self-care (01) | DRG 639 ==
LOC: ER 11:43 → 5 SOUTH 16:14
PROVIDERS: ADMIT Internal Medicine; ATTEND Internal Medicine
DX: E10.10 Type 1 diabetes mellitus with ketoacidosis without coma (principal); E88.09 Other disorders of plasma-protein metabolism, not elsewhere classified; F41.9 Anxiety disorder, unspecified; G40.909 Epilepsy, unspecified, not intractable, without status epilepticus; I10 Essential (primary) hypertension; Z96.41 Presence of insulin pump (external) (internal); Z79.4 Long term (current) use of insulin; Z83.3 Family history of diabetes mellitus; Z88.2 Allergy status to sulfonamides
CPT/HCPCS: 36415; 36600; 71010; 80048; 80076; 81001; 81025; 82805; 82962; 83036; 83605; 83690; 84484; 85007; 85025; 87086; 96361; 96365; 96372; J0690; J0780; J1815; J2405; J7030; J8597; 99285-25

== ENCOUNTER 2018-05-02 19:08 | Emergency (ER) | payer BC, OTHER ==
[~2018-05-02] VITALS: Ht 165.1 cm; Wt 84.8 kg
[~2018-05-02 19:08] MED LIST: ZONI100C PO
[2018-05-02 20:52] LABS: BASO # 0.1 x10^3/uL (0.0-0.2); BASO % 1 % (0-3); EOS # 0.3 x10^3/uL (0.0-0.7); EOS % 3 % (0-3); HEMATOCRIT 41.2 % (36.0-47.0); HEMOGLOBIN 13.5 g/dL (12.0-15.5); LYMPH # 2.2 x10^3/uL (1.0-4.8); LYMPH % 20 % (24-48); MEAN CORPUSCULAR HEMOGLOBIN 28 pg (25-35); MEAN CORPUSCULAR HGB CONC 33 g/dL (31-37); MEAN CORPUSCULAR VOLUME 85 fL (79-100); MONO # 0.7 x10^3/uL (0.0-1.1); MONO % 6 % (0-9); NEUT # 7.9 x10^3uL (1.8-7.7); NEUT % 71 % (31-73); PLATELET COUNT 281 x10^3/uL (140-400); RED BLOOD COUNT 4.82 x10^6/uL (3.50-5.40); RED CELL DISTRIBUTION WIDTH 14.1 % (11.5-14.5); WHITE BLOOD COUNT 11.2 x10^3/uL (4.0-11.0)
[2018-05-02 20:53] LABS: BILIRUBIN,URINE NEGATIVE (NEG); CLARITY,URINE CLEAR; COLOR,URINE YELLOW; NITRITE,URINE POSITIVE (NEG); PROTEIN,URINE >=300 mg/dL (NEG-TRACE); UROBILINOGEN,URINE 0.2 mg/dL (0.2 mg/dL)
[2018-05-02 21:06] LABS: CALCIUM 9.3 mg/dL (8.5-10.1); GFR 67.6; POTASSIUM 3.8 mmol/L (3.5-5.1)
[2018-05-02 21:10] LABS: BACTERIA,URINE MANY /HPF (0-FEW); RBC,URINE >40 /HPF (0-2); SQUAMOUS EPITHELIAL CELL,UR FEW /LPF; WBC,URINE >40 /HPF (0-4)
[2018-05-02 21:12] LABS: ALBUMIN 3.4 g/dL (3.4-5.0); ALBUMIN/GLOBULIN RATIO 0.8 (1.0-1.7); TOTAL BILIRUBIN 0.2 mg/dL (0.2-1.0); TOTAL PROTEIN 7.8 g/dL (6.4-8.2)
--- NOTE | 2018-05-02 23:34 | RAD ---
Pelvic ultrasound including transvaginal scanning 05/02/2018. Reason for exam: Pelvic pain. History of IUD. Initial scanning was done through the patient's abdominal wall and bladder. There was poor bladder filling. The uterus is not well seen, and neither ovary is demonstrated. Transvaginal scanning was performed to better visualize the pelvic structures. By transvaginal scanning, the uterus is shown to be anteverted, but normal in size and shape. An echogenic area in the endometrial region is consistent with the IUD. Endometrial thickness appears normal at 7 mm. Both ovaries are shown and are normal in size. They have internal blood flow. No adnexal mass is seen. Note is made of moderate free pelvic fluid posteriorly and toward the right. IMPRESSION: Normal-appearing uterus and ovaries. Moderate free fluid of uncertain origin. Electronically signed by: Julio Cesar Hall Jr., MD (05/02/2018 11:30 PM) [id number]
[2018-05-03] VITALS: BP 142/95
[2018-05-03] MEDS ORDERED: CEPH500T PO (00:34)
[2018-05-03] MEDS ORDERED: TRAM-48 PO (00:34)
--- NOTE | 2018-05-03 00:35 | PHYS DOC ---
Past Medical History Past Medical History: Anxiety, Diabetes-Type I, Seizure, Other Additional Past Medical Histor: epilepsy, lumbar lordosis, insulin pump Past Surgical History: No Surgical History Alcohol Use: Occasionally Drug Use: None Adult General Chief Complaint Chief Complaint: PELVIC PAIN [facility] HPI Patient is a 27 year old female with history of anxiety, diabetes type 1, who presents to the ED today complaining of a 5/10 sharp left pelvic pain that began a couple minutes prior to coming to the ED patient states she had intercourse prior to this pain beginning. Patient states the pain is on and off. Patient denies any chance she is , she states she has an IUD. She states she's not had a menstrual cycle since she was 15 years old. She states the IUD was placed in an effort to stop her cycles. Review of Systems Review of Systems Constitutional: Denies fever or chills [] Eyes: Denies change in visual acuity, redness, or eye pain [] HENT: Denies nasal congestion or sore throat [] Respiratory: Denies cough or shortness of breath [] Cardiovascular: No additional information not addressed in HPI [] GI: Reports left pelvic pain, denies nausea, vomiting, bloody stools or diarrhea [] : Denies dysuria or hematuria [] Musculoskeletal: Denies back pain or joint pain [] Integument: Denies rash or skin lesions [] Neurologic: Denies headache, focal weakness or sensory changes [] All other systems were reviewed and found to be within normal limits, except as documented in this note. Allergies Allergies Allergies Coded Allergies Type Severity Reaction Last Updated Verified Sulfa (Sulfonamide Antibiotics) Allergy Intermediate childhood 03/19/17 Yes Physical Exam Physical Exam Constitutional: Well developed, well nourished, no acute distress, non-toxic appearance. [] HENT: Normocephalic, atraumatic, bilateral external ears normal, oropharynx moist, no oral exudates, nose normal. [] Eyes: PERRLA, EOMI, conjunctiva normal, no discharge. [] Neck: Normal range of motion, no tenderness, supple, no stridor. [] Cardiovascular:Heart rate regular rhythm, no murmur [] Lungs & Thorax: Bilateral breath sounds clear to auscultation [] Abdomen: Bowel sounds normal, soft, no right upper quadrant or right lower quadrant tenderness, negative psoas sign, negative obturator sign, no masses, no pulsatile masses. [] Pelvic exam External pelvic appears normal, cervix is visualized, IUD strings noted, trace amount of brownish discharge noted in the vaginal vault, no right adnexal tenderness, slight left adnexal tenderness Skin: Warm, dry, no erythema, no rash. [] Back: No tenderness, no CVA tenderness. [] Extremities: No tenderness, no cyanosis, no clubbing, ROM intact, no edema. [] Neurologic: Alert and oriented X 3, normal motor function, normal sensory function, no focal deficits noted. [] Psychologic: Affect normal, judgement normal, mood normal. [] Current Patient Data Vital Signs Vital Signs Date Time Temp Pulse Resp B/P (MAP) Pulse Ox O2 Delivery O2 Flow Rate FiO2 05/02/18 22:30 99 18 130/97 (108) 98 Room Air 05/02/18 19:55 98.8 98.8 Lab Values Laboratory Tests Test 05/02/18 20:15 05/02/18 20:30 05/02/18 20:34 Urine Collection Type Unknown Urine Color Yellow Urine Clarity Clear Urine pH 6.0 Urine Specific [place] 1.025 Urine Protein >=300 mg/dL (NEG-TRACE) Urine Glucose (UA) Negative mg/dL (NEG) Urine Ketones (Stick) Trace mg/dL (NEG) Urine Blood Moderate (NEG) Urine Nitrite Positive (NEG) Urine Bilirubin Negative (NEG) Urine Urobilinogen Dipstick 0.2 mg/dL (0.2 mg/dL) Urine Leukocyte Esterase Small (NEG) Urine RBC >40 /HPF (0-2) Urine WBC >40 /HPF (0-4) Urine Squamous Epithelial Cells Few /LPF Urine Bacteria Many /HPF (0-FEW) White Blood Count 11.2 x10^3/uL (4.0-11.0) H Red Blood Count 4.82 x10^6/uL (3.50-5.40) Hemoglobin 13.5 g/dL (12.0-15.5) Hematocrit 41.2 % (36.0-47.0) Mean Corpuscular Volume 85 fL (79-100) Mean Corpuscular Hemoglobin 28 pg (25-35) Mean Corpuscular Hemoglobin Concent 33 g/dL (31-37) Red Cell Distribution Width 14.1 % (11.5-14.5) Platelet Count 281 x10^3/uL (140-400) Neutrophils (%) (Auto) 71 % (31-73) Lymphocytes (%) (Auto) 20 % (24-48) L Monocytes (%) (Auto) 6 % (0-9) Eosinophils (%) (Auto) 3 % (0-3) Basophils (%) (Auto) 1 % (0-3) Neutrophils # (Auto) 7.9 x10^3uL (1.8-7.7) H Lymphocytes # (Auto) 2.2 x10^3/uL (1.0-4.8) Monocytes # (Auto) 0.7 x10^3/uL (0.0-1.1) Eosinophils # (Auto) 0.3 x10^3/uL (0.0-0.7) Basophils # (Auto) 0.1 x10^3/uL (0.0-0.2) Sodium Level 139 mmol/L (136-145) Potassium Level 3.8 mmol/L (3.5-5.1) Chloride Level 102 mmol/L (98-107) Carbon Dioxide Level 26 mmol/L (21-32) Anion Gap 11 (6-14) Blood Urea Nitrogen 22 mg/dL (7-20) H Creatinine 1.0 mg/dL (0.6-1.0) Estimated GFR (Cockcroft-Gault) 67.6 BUN/Creatinine Ratio 22 (6-20) H Glucose Level 131 mg/dL (70-99) H Calcium Level 9.3 mg/dL (8.5-10.1) Total Bilirubin 0.2 mg/dL (0.2-1.0) Aspartate Amino Transferase (AST) 20 U/L (15-37) Alanine Aminotransferase (ALT) 31 U/L (14-59) Alkaline Phosphatase 105 U/L (46-116) Total Protein 7.8 g/dL (6.4-8.2) Albumin 3.4 g/dL (3.4-5.0) Albumin/Globulin Ratio 0.8 (1.0-1.7) L POC Urine HCG, Qualitative Hcg negative (Negative) Laboratory Tests 05/02/18 20:30 Laboratory Tests 05/02/18 20:30 Microbiology 05/02/18 Wet Prep - Final, Complete EKG EKG [] Radiology/Procedures Radiology/Procedures []PROCEDURE: PELVIS W/TV Pelvic ultrasound including transvaginal scanning 05/02/2018. Reason for exam: Pelvic pain. History of IUD. Initial scanning was done through the patient's abdominal wall and bladder. There was poor bladder filling. The uterus is not well seen, and neither ovary is demonstrated. Transvaginal scanning was performed to better visualize the pelvic structures. By transvaginal scanning, the uterus is shown to be anteverted, but normal in size and shape. An echogenic area in the endometrial region is consistent with the IUD. Endometrial thickness appears normal at 7 mm. Both ovaries are shown and are normal in size. They have internal blood flow. No adnexal mass is seen. Note is made of moderate free pelvic fluid posteriorly and toward the right. IMPRESSION: Normal-appearing uterus and ovaries. Moderate free fluid of uncertain origin. Electronically signed by: Long Concepcion Jr., MD (05/02/2018 11:30 PM) [id number] DICTATED and SIGNED BY: LONG CONCEPCION Jr, MD DATE: 05/02/18 232 Course & Med Decision Making Course & Med Decision Making Pertinent Labs and Imaging studies reviewed. (See chart for details) This is a 27-year-old female patient presenting to the ED today complaining of pelvic pain that began prior to coming to the ED. Pain is specifically of the left pelvic region, negative urine hCG, WBC 11.2, CMP with no acute findings. Urine analysis is noted for nitrites and small amount of leukocytes. Wet prep is negative for any acute findings. Pelvic ultrasound noted for moderate free pelvic fluid posteriorly and toward the right. Patient does not right lower quadrant tenderness. Patient was discharged with cephalexin for UTI and tramadol for pain. Follow-up with PEDIATRIC AUDIOLOGIST in the course of next week. Case discussed with Dr. Nataliia Mondragon Disclaimer Giancarlo Disclaimer This electronic medical record was generated, in whole or in part, using a voice recognition dictation system. Departure Departure Impression: Primary Impression: Pelvic pain Additional Impression: UTI (urinary tract infection) Disposition: HOME, SELF-CARE Condition: STABLE Referrals: UNKNOWN PCP NAME (PCP) Follow-up with your PEDIATRIC AUDIOLOGIST next week Patient Instructions: Pelvic Pain, Female, Urinary Tract Infection Additional Instructions: You were evaluated in the emergency room. You were noted to have urinary tract infection, complete your antibiotics. Take the prescribed pain medicine as needed for pain. Follow-up with your PEDIATRIC AUDIOLOGIST in the course of next week. Come back to the ED at any point symptoms worsen. Scripts Tramadol Hcl (ULTRAM) 50 Mg Tablet 50 MG PO Q4HRS PRN for PAIN, #20 TAB 0 Refills Prov: JAYME RUIZ APRN 05/03/18 Cephalexin (CEPHALEXIN) 500 Mg Tablet 1 TAB PO BID, #14 TAB Prov: JAYME RUIZ APRN 05/03/18 Problem Qualifiers Additional Impression: UTI (urinary tract infection) Urinary tract infection type: site unspecified Hematuria presence: without hematuria Qualified Codes: N39.0 - Urinary tract infection, site not specified JAYME RUIZ APRN May 03, 2018 00:35
[2018-05-04 13:19] LABS: GC PROBE Negative (Negative)
== END 2018-05-03 00:48 | disposition home or self-care (01) ==
LOC: ER 19:08
DX: N39.0 Urinary tract infection, site not specified (principal); R10.2 Pelvic and perineal pain; F41.9 Anxiety disorder, unspecified; E10.9 Type 1 diabetes mellitus without complications; Z88.2 Allergy status to sulfonamides
CPT/HCPCS: 36415; 76830; 76856; 80053; 81001; 81025; 85025; 87086; 87491; 87591; 99284; Q0111